=== PATIENT | female | born 1995 | race African-American/Black ===

== ENCOUNTER 2017-01-23 19:25 | Emergency (ER) | payer BC ==
[~2017-01-23] VITALS: Ht 172.7 cm; Wt 71.7 kg
[~2017-01-23 19:25] MED LIST: AMOXICILLIN500 M1 PO; BACTRIM DS TAB1 EACH PO; CORTISPORIN OTI10 M2 OTIC; NOHOMEMEDICATIONS; NORCO 5-325 TA1 EACH PO; VITAFOL-OB+DHA1 EACH PO; ZOFRAN ODT4 MG PO; ZOFRAN4 MG PO
[2017-01-23 19:27] VITALS: BP 127/86
== END 2017-01-23 20:27 | disposition home or self-care (01) ==
LOC: ER 19:25
DX: S16.1XXA Strain of muscle, fascia and tendon at neck level, initial encounter (principal); F12.10 Cannabis abuse, uncomplicated; V47.5XXA Car driver injured in collision with fixed or stationary object in traffic accident, initial encounter; Y93.I9 Activity, other involving external motion; Y92.415 Exit ramp or entrance ramp of street or highway as the place of occurrence of the external cause; Y99.8 Other external cause status

== ENCOUNTER 2017-02-25 20:51 | Emergency (ER) | payer BC | END 2017-02-25 23:57 | disposition home or self-care (01) | LOC: ER 20:51 | DX: S01.21XA Laceration without foreign body of nose, initial encounter (principal); F15.90 Other stimulant use, unspecified, uncomplicated; X99.1XXA Assault by knife, initial encounter; Y93.89 Activity, other specified; Y92.89 Other specified places as the place of occurrence of the external cause; Y99.8 Other external cause status ==

== ENCOUNTER 2020-04-30 14:04 | Emergency (ER) | payer OTHER ==
[~2020-04-30] VITALS: Ht 172.7 cm; Wt 72.6 kg
[~2020-04-30 14:04] MED LIST changes: +KEFLEX500 MG PO
[2020-04-30] MEDS ORDERED: NEXPLANON68 MG SQ (14:27)
[2020-04-30 16:13] VITALS: BP 113/63
== END 2020-04-30 16:13 | disposition home or self-care (01) ==
LOC: ER 14:04
DX: S00.83XA Contusion of other part of head, initial encounter (principal); Z79.899 Other long term (current) drug therapy; V47.6XXA Car passenger injured in collision with fixed or stationary object in traffic accident, initial encounter; Y93.89 Activity, other specified; Y92.89 Other specified places as the place of occurrence of the external cause; Y99.8 Other external cause status